=== PATIENT | female | born 1950 | race Caucasian/White ===

== ENCOUNTER 2019-05-26 12:44 | Emergency (ER) | payer MEDICARE, BC ==
[2019-05-26] MEDS: ONDANSETRON (ODT) 4 MG TAB ODT (13:21)
== END 2019-05-26 14:17 | disposition home or self-care (01) ==
LOC: FTE 14:17
DX: R11.0 Nausea (principal); E11.9 Type 2 diabetes mellitus without complications; I10 Essential (primary) hypertension
CPT/HCPCS: 82962; 99283